=== PATIENT | male | born 1950 | race Caucasian/White ===

== ENCOUNTER 2017-07-12 17:58 | Emergency (ER) | payer MEDICARE, BC ==
[~2017-07-12] VITALS: Ht 180.3 cm; Wt 88.5 kg
[~2017-07-12 17:58] MED LIST: ASPI81CH PO; BP MED; CHOLESTEROL MED; Cipro500 MG PO; Flagyl500 MG PO; Norco 5-325 Ta1 EACH PO; Zofran Odt4 MG PO
[2017-07-12] MEDS ORDERED: QUIN10 PO (19:30)
[2017-07-12] MEDS ORDERED: ATOR10 PO (19:30)
[2017-07-12] MEDS ORDERED: HYDCHL25 PO (19:30)
[2017-07-12 19:43] LABS: BASOPHILS ABSOLUTE AUTO 0.06 K/mm3 (0.00-0.23); BASOPHILS PERCENT AUTO 1 % (0-2); EOSINOPHILS ABSOLUTE AUTO 0.21 K/mm3 (0.00-0.68); EOSINOPHILS PERCENT AUTO 2 % (0-6); Hematocrit 43.9 % (37.0-53.0); Hemoglobin 14.8 g/dL (13.5-17.5); IMMATURE GRAN ABSOLUTE AUTO 0.06 K/mm3 (0.00-0.10); IMMATURE GRAN PERCENT AUTO 1 % (0-1); LYMPHOCYTES ABSOLUTE AUTO 1.81 K/mm3 (0.84-5.20); LYMPHOCYTES PERCENT AUTO 15 % (21-46); MONOCYTES ABSOLUTE AUTO 0.85 K/mm3 (0.16-1.47); MONOCYTES PERCENT AUTO 7 % (4-13); Mean Corpuscular HGB 29.7 pg (26.0-34.0); Mean Corpuscular HGB Conc 33.7 g/dL (31.5-36.5); Mean Corpuscular Volume 88 fL (80-100); Mean Platelet Volume 10.9 fL (9.1-12.4); NEUTROPHILS PERCENT AUTO 76 % (41-73); Platelet Count 187 K/mm3 (150-400); RDW Coefficient Variation 13.2 % (11.7-14.2); RDW Standard Deviation 42.8 fL (35.1-46.3); Red Blood Cell Count 4.99 M/mm3 (4.30-5.90); White Blood Cell Count 12.19 K/mm3 (4.00-11.30)
[2017-07-12 21:17] LABS: Alanine Aminotransfer (ALT/SGP 23 U/L (12-78); Albumin, Blood 4.5 g/dL (3.4-5.0); Albumin/Globulin Ratio 1.4 (0.8-1.8); Alk Phos 101 U/L (50-136); Anion Gap 9 mmol/L (6-16); Aspartate Aminotrans (AST/SGOT 14 U/L (12-37); Bilirubin, Total 0.8 mg/dL (0.1-1.0); Blood Urea Nitrogen 15 mg/dL (8-24); CO2, Blood 25 mmol/L (21-32); Calcium, Blood 9.1 mg/dL (8.5-10.1); Chloride, Blood 106 mmol/L (98-108); Creatinine, Blood 1.07 mg/dL (0.60-1.20); Globulin, Blood 3.3 g/dL (2.2-4.0); Glomerular Filtration Rate >60 (60-); Glucose, Blood 88 mg/dL (70-99); Potassium, Blood 3.7 mmol/L (3.5-5.5); Sodium, Blood 140 mmol/L (136-145); Total Protein, Blood 7.8 g/dL (6.4-8.2)
[2017-07-12] MEDS ORDERED: Amox Tr-K Clv1 EAC2 PO (21:18)
[2018-05-22] MEDS ORDERED: HYDCHL25 PO (12:21)
[2018-05-22] MEDS ORDERED: Omeprazole20 M1 PO (12:21)
[2018-05-22] MEDS ORDERED: ALBU90OI61 (12:22)
[2018-05-22] MEDS ORDERED: Aspirin EC81 MG PO (12:23)
[2018-05-22] MEDS ORDERED: Flovent Diskus50 MCG INH (12:25)
== END 2017-07-12 21:38 | disposition home or self-care (01) ==
LOC: ER 17:58
PROVIDERS: Emergency Medicine
DX: K57.32 Diverticulitis of large intestine without perforation or abscess without bleeding (principal); I10 Essential (primary) hypertension; E78.5 Hyperlipidemia, unspecified
CPT/HCPCS: 36415; 74176; 80053; 81000; 85025; 96374; 99284; J1885

== ENCOUNTER → 2017-09-23 | Outpatient (CLI) | payer MEDICARE, BC ==
[~2017-09-23] MED LIST changes: +ATOR10 PO; +Amox Tr-K Clv1 EAC2 PO; +HYDCHL25 PO; +QUIN10 PO
== END | disposition home or self-care (01) ==
LOC: PLD 07:55 → LAB SHORT 07:55
DX: L98.499 Non-pressure chronic ulcer of skin of other sites with unspecified severity (principal); R58 Hemorrhage, not elsewhere classified
CPT/HCPCS: 88305

== ENCOUNTER 2017-12-05 10:22 | Emergency (ER) | payer MEDICARE, BC ==
[~2017-12-05] VITALS: Ht 177.8 cm; Wt 85.7 kg
[2017-12-05] MEDS ORDERED: NAPR550 PO (11:28)
[2017-12-05] MEDS ORDERED: Voltaren100 GM TOP (11:28)
[2017-12-05] MEDS ORDERED: CYCL10 PO (11:28)
== END 2017-12-05 11:36 | disposition home or self-care (01) ==
LOC: ER 10:22
DX: M75.32 Calcific tendinitis of left shoulder (principal); Z79.899 Other long term (current) drug therapy; Z79.82 Long term (current) use of aspirin; Z87.891 Personal history of nicotine dependence
CPT/HCPCS: 73030; 99283

== ENCOUNTER 2018-10-19 07:09 | Day surgery (SDC) | payer MEDICARE, BC ==
[~2018-10-19] VITALS: Ht 177.8 cm; Wt 81.2 kg
[~2018-10-19 07:09] MED LIST changes: +ALBU90OI61; +Aspirin EC81 MG PO; +CYCL10 PO; +Flovent Diskus50 MCG INH; +HYDCHL12.5 PO; +NAPR550 PO; +Omeprazole20 M1 PO; +Voltaren100 GM TOP
--- NOTE | 2018-10-19 08:10 | NUR ---
10/19/18 [id number] DISCUSSION AND TEACHING WITH PATIENT AND . PATIENT EXPRESSES TAHT HE IS CONCERNED ABOUT BEING ON HIS LEFT SIDE. HE STATES HE HAS BACK PROBLEMS AND AVOID LAYING ON HIS LEFT SIDE. I EXPLAIN THAT DUE TO ANATOMY THIS IS THE SIDE HE WILL BE ON AND I WILL LET HIM TURN OVER SOON HE WAKES AND IS ABLE. I ASK HIM TO LET ME KNOW IF HE NEEDS ANY PILLOWS OR EXTRA SUPPORT WHEN HE IS TURNED AND WE WILL DO OUR BEST TO KEEP HIM COMFORTABLE. PATIENT VERBALIZES UNDERSTANDING OF THE ABOVE
== END 2018-10-19 09:40 | disposition home or self-care (01) ==
LOC: ORSCSDS 07:09
PROVIDERS: Student in an Organized Health Care Education/Training Program
PROC: 0DBM8ZX Excision of Descending Colon, Via Natural or Artificial Opening Endoscopic, Diagnostic (ICD-10-PCS; principal; 2018-10-19 08:30)
PROC: 0DBE8ZX Excision of Large Intestine, Via Natural or Artificial Opening Endoscopic, Diagnostic (ICD-10-PCS; principal; 2018-10-19 08:30)
DX: Z12.11 Encounter for screening for malignant neoplasm of colon (principal); D12.4 Benign neoplasm of descending colon; D36.7 Benign neoplasm of other specified sites; K64.4 Residual hemorrhoidal skin tags; K64.8 Other hemorrhoids; J45.909 Unspecified asthma, uncomplicated; I10 Essential (primary) hypertension; E78.00 Pure hypercholesterolemia, unspecified; Z87.891 Personal history of nicotine dependence; Z79.899 Other long term (current) drug therapy; K57.30 Diverticulosis of large intestine without perforation or abscess without bleeding
CPT/HCPCS: 88305; J2704; J7120

== ENCOUNTER 2019-03-15 20:26 | Emergency (ER) | payer MEDICARE, BC ==
[~2019-03-15] VITALS: Ht 180.3 cm; Wt 83.0 kg
[2019-03-15 21:49] LABS: BASOPHILS ABSOLUTE AUTO 0.05 K/mm3 (0.00-0.23); BASOPHILS PERCENT AUTO 1 % (0-2); EOSINOPHILS ABSOLUTE AUTO 0.21 K/mm3 (0.00-0.68); EOSINOPHILS PERCENT AUTO 3 % (0-6); Hematocrit 45.9 % (37.0-53.0); Hemoglobin 15.3 g/dL (13.5-17.5); IMMATURE GRAN ABSOLUTE AUTO 0.02 K/mm3 (0.00-0.10); IMMATURE GRAN PERCENT AUTO 0 % (0-1); LYMPHOCYTES ABSOLUTE AUTO 2.32 K/mm3 (0.84-5.20); LYMPHOCYTES PERCENT AUTO 30 % (21-46); MONOCYTES ABSOLUTE AUTO 0.62 K/mm3 (0.16-1.47); MONOCYTES PERCENT AUTO 8 % (4-13); Mean Corpuscular HGB 30.2 pg (26.0-34.0); Mean Corpuscular HGB Conc 33.3 g/dL (31.5-36.5); Mean Corpuscular Volume 91 fL (80-100); Mean Platelet Volume 10.6 fL (9.1-12.4); NEUTROPHILS ABSOLUTE AUTO 4.51 K/mm3 (1.96-9.15); NEUTROPHILS PERCENT AUTO 58 % (41-73); Platelet Count 204 K/mm3 (150-400); RDW Coefficient Variation 13.4 % (11.7-14.2); Red Blood Cell Count 5.07 M/mm3 (4.30-5.90); White Blood Cell Count 7.73 K/mm3 (4.00-11.30)
[2019-03-15 21:55] LABS: Source, Urine Clean Catch
[2019-03-15 22:02] LABS: Appearance, Urine Clear (Clear); Bilirubin, Urine Neg (Neg); Blood, Urine Neg (Neg); Color, Urine Yellow (P-Yellow); Glucose Qualitative, Urine Neg (Neg); Ketones, Urine Neg (Neg); Leukocyte Esterase, Urine Neg (Neg); Nitrite, Urine Neg (Neg); Protein, Urine Neg (Neg); Specific Gravity, Urine 1.015 (1.003-1.022); Urobilinogen, Urine NORM (Normal)
[2019-03-15 22:07] LABS: Alanine Aminotransfer (ALT/SGP 23 U/L (12-78); Albumin, Blood 4.2 g/dL (3.4-5.0); Albumin/Globulin Ratio 1.2 (0.8-1.8); Alk Phos 80 U/L (50-136); Anion Gap 6 mmol/L (6-16); Aspartate Aminotrans (AST/SGOT 10 U/L (12-37); Bilirubin, Total 0.8 mg/dL (0.1-1.0); Blood Urea Nitrogen 20 mg/dL (8-24); Bun/Creatinine Ratio 16.7 (12.0-20.0); CO2, Blood 30 mmol/L (21-32); Calcium, Blood 9.2 mg/dL (8.5-10.1); Chloride, Blood 104 mmol/L (98-108); Globulin, Blood 3.6 g/dL (2.2-4.0); Glomerular Filtration Rate >60 (60-); Glucose, Blood 88 mg/dL (70-99); Potassium, Blood 3.4 mmol/L (3.5-5.5); Sodium, Blood 140 mmol/L (136-145); Total Protein, Blood 7.8 g/dL (6.4-8.2)
[2019-03-15] MEDS ORDERED: Flagyl500 MG PO (22:45)
[2019-03-15] MEDS ORDERED: Cipro500 MG PO (22:45)
== END 2019-03-15 22:55 | disposition home or self-care (01) ==
LOC: ER 20:26
PROVIDERS: Physician Assistant
DX: K57.92 Diverticulitis of intestine, part unspecified, without perforation or abscess without bleeding (principal); Z87.891 Personal history of nicotine dependence; Z79.899 Other long term (current) drug therapy
CPT/HCPCS: 80053; 81003; 83690; 85025; 93005; 93010; 99284-25; A9270-GY

== ENCOUNTER → 2020-04-19 | Outpatient (CLI) | payer MEDICARE, BC ==
[2020-04-22 00:11] LABS: ADENOVIRUS F 40/41 Not Detected (Not Detected); ASTROVIRUS Not Detected (Not Detected); C DIFFICILE TOXIN A/B Not Detected (Not Detected); CAMPYLOBACTER Detected (Not Detected); CRYPTOSPORIDIUM Not Detected (Not Detected); CYCLOSPORA CAYETANENSIS Not Detected (Not Detected); ENTAMOEBA HISTOLYTICA Not Detected (Not Detected); ENTEROAGGREGATIVE E COLI Not Detected (Not Detected); ENTEROPATHOGENIC E COLI Not Detected (Not Detected); ENTEROTOXIGENIC E COLI Not Detected (Not Detected); GIARDIA LAMBLIA Not Detected (Not Detected); NOROVIRUS GI/GII Not Detected (Not Detected); PLESIOMONAS SHIGELLOIDES Not Detected (Not Detected); ROTAVIRUS A Not Detected (Not Detected); SALMONELLA Not Detected (Not Detected); SAPOVIRUS Not Detected (Not Detected); SHIGA-TOXIN-PRODUCING E COLI Not Detected (Not Detected); SHIGELLA/ENTEROINVASIVE E COLI Not Detected (Not Detected); VIBRIO Not Detected (Not Detected); VIBRIO CHOLERAE Not Detected (Not Detected); YERSINIA ENTEROCOLITICA Not Detected (Not Detected)
== END | disposition home or self-care (01) ==
LOC: LAB EV 20:00 → LAB SHORT 20:00
PROVIDERS: Student in an Organized Health Care Education/Training Program
DX: R14.0 Abdominal distension (gaseous) (principal); R19.7 Diarrhea, unspecified
CPT/HCPCS: 0097U

== ENCOUNTER 2022-08-02 10:44 | Day surgery (SDC) | payer MEDICARE, BC ==
[~2022-08-02] VITALS: Ht 177.8 cm; Wt 75.9 kg
[2022-08-02] MEDS ORDERED: Flonase 0.05% N16 GM (11:13)
[2022-08-02] MEDS ORDERED: Lisinopril2.5 MG (11:13)
== END 2022-08-02 12:40 | disposition home or self-care (01) ==
LOC: ORSCSDS 10:44
PROVIDERS: Student in an Organized Health Care Education/Training Program
PROC: 0DBL8ZX Excision of Transverse Colon, Via Natural or Artificial Opening Endoscopic, Diagnostic (ICD-10-PCS; principal; 2022-08-02 12:00)
DX: R10.30 Lower abdominal pain, unspecified (principal); R19.7 Diarrhea, unspecified; Z86.010 Personal history of colon polyps; D12.3 Benign neoplasm of transverse colon; K57.30 Diverticulosis of large intestine without perforation or abscess without bleeding; K62.89 Other specified diseases of anus and rectum; K64.8 Other hemorrhoids; K21.9 Gastro-esophageal reflux disease without esophagitis; I10 Essential (primary) hypertension; E78.5 Hyperlipidemia, unspecified; Z87.891 Personal history of nicotine dependence; Z79.899 Other long term (current) drug therapy
CPT/HCPCS: 88305; J2704; J7120

== ENCOUNTER 2023-12-03 09:45 | Day surgery (SDC) | payer MEDICARE, BC ==
[~2023-12-03] VITALS: Ht 180.3 cm; Wt 81.2 kg
[~2023-12-03 09:45] MED LIST changes: +Flonase 0.05% N16 GM; +Lactated Ringer's 1,000 ML IV ONE; +Lisinopril2.5 MG; +propofoL 50 ML IV ONE
[2023-12-03] MEDS ORDERED: FAMO10 (09:57)
[2023-12-03] MEDS ORDERED: Lactated Ringer's 1,000 ML IV ONE (10:19)
[2023-12-03 11:40] VITALS: BP 119/72
== END 2023-12-03 11:35 | disposition home or self-care (01) ==
LOC: ORSCSDS 09:45
PROVIDERS: Specialist
PROC: 0DB58ZX Excision of Esophagus, Via Natural or Artificial Opening Endoscopic, Diagnostic (ICD-10-PCS; principal; 2023-12-03 11:00)
PROC: 0DB68ZX Excision of Stomach, Via Natural or Artificial Opening Endoscopic, Diagnostic (ICD-10-PCS; principal; 2023-12-03 11:00)
DX: K21.9 Gastro-esophageal reflux disease without esophagitis (principal); R10.9 Unspecified abdominal pain; R63.4 Abnormal weight loss; K44.9 Diaphragmatic hernia without obstruction or gangrene; Z79.899 Other long term (current) drug therapy
CPT/HCPCS: 88305; 88342; J2704; J7120